=== PATIENT | male | born 1990 | race Caucasian/White ===

== ENCOUNTER 2018-05-07 23:35 | Emergency (ER) | payer OTHER ==
[2018-05-08] MEDS ORDERED: IBUPROFEN 600 MG TAB PO ONE ×2 (00:06→00:10)
[2018-05-08] MEDS ORDERED: HYDROCODONE/APAP 5/325 TAB ONE (00:06)
[2018-05-08] MEDS ORDERED: HYDROCODONE/APAP 5/325 TAB PO ONE (00:10)
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
[2018-05-08] MEDS ORDERED: HYDROCOD/APAP 5/325 PREPACK#6 BTL TAKEHOME ONE (01:05)
[2018-05-08 01:30] VITALS: BP 115/82
== END 2018-05-08 01:30 | disposition home or self-care (01) ==
PROC: 2W39X1Z Immobilization of Left Upper Extremity using Splint (ICD-10-PCS; principal; 2018-05-07)
DX: S52.022A Displaced fracture of olecranon process without intraarticular extension of left ulna, initial encounter for closed fracture (principal); R10.30 Lower abdominal pain, unspecified; V19.9XXA Pedal cyclist (driver) (passenger) injured in unspecified traffic accident, initial encounter; Y93.55 Activity, bike riding
CPT/HCPCS: A4565